=== PATIENT | female | born 1980 | race American Indian/Alaskan Native ===

== ENCOUNTER 2016-08-17 13:15 | Observation (INO) | payer MEDICAID ==
[2016-08-17 13:15] VITALS: BMI 29.2
--- NOTE | 2016-08-17 13:39 | ED PDOC ---
Arrival/HPI - General Historian: Patient - History of Present Illness Time/Duration: < week Symptom Onset: Gradual Symptom Course: Unchanged <Guilherme Quintero - Last Filed: 08/17/16 22:29> <Orlin Hanson - Last Filed: 08/18/16 06:23> <Tom Moses - Last Filed: 08/19/16 17:56> - General Chief Complaint: Substance Abuse Time Seen by Provider: 08/17/16 13:26 - History of Present Illness Narrative History of Present Illness (Text): 08/17/16 13:36 35 year old female brought in by EMS after friend called from "intoxication". Patient states she was "partying for the last 2 days". Last etoh last night. Denies any new trauma. pt states "unsure if she had any drugs" 08/17/16 22:29 (Guilherme Quintero) Modifying Factors (Text): None (Guilherme Quintero) Associated Symptoms (Text): None (Guilherme Quintero) Past Medical History - Provider Review Nursing Documentation Reviewed: Yes - Infectious Disease Hx of Infectious Diseases: None - Pulmonary Hx Asthma: Yes - Psychiatric Hx Anxiety: Yes Hx Substance Use: Yes - Surgical History Hx Tubal Ligation: Yes Other/Comment: right ankle, left ankle. - Anesthesia Hx Anesthesia: Yes Hx Anesthesia Reactions: No <Guilherme Quintero - Last Filed: 08/17/16 22:29> Family/Social History - Physician Review Nursing Documentation Reviewed: Yes Family/Social History: Unknown Family HX Smoking Status: Heavy Smoker > 10 Cigarettes Daily Hx Alcohol Use: Yes Hx Substance Use: Yes Substance used: PCP, marijuana <Guilherme Quintero - Last Filed: 08/17/16 22:29> Allergies/Home Meds <Guilherme Quintero - Last Filed: 08/17/16 22:29> <Orlin Hanson - Last Filed: 08/18/16 06:23> <Tom Moses - Last Filed: 08/19/16 17:56> Allergies/Adverse Reactions: Allergies No Known Allergies Allergy (Verified 09/23/15 23:27) Home Medications: Home Meds Medication Instructions Recorded Confirmed ALPRAZolam [Xanax] 1 mg PO BID 09/23/15 09/23/15 Albuterol HFA 2 puff IH TID PRN 09/23/15 09/23/15 Review of Systems - Review of Systems Systems not reviewed;Unavailable: Intoxicated Respiratory: absent: SOB Cardiovascular: absent: Chest Pain <Guilherme Quintero - Last Filed: 08/17/16 22:29> Physical Exam Vital Signs Reviewed: Yes Temperature: Afebrile Blood Pressure: Normal Pulse: Regular Respiratory Rate: Normal Appearance: Positive for: Well-Appearing, Non-Toxic, Comfortable Pain Distress: None Mental Status: Positive for: other (Alert, answering questions) - Systems Exam Head: Present: Atraumatic, Normocephalic Pupils: Present: Other (Pupils 2 mm bilaterally) Extroacular Muscles: Present: EOMI Conjunctiva: Present: Injected (Mild injection left eye) Mouth: Present: Moist Mucous Membranes Neck: Present: Normal Range of Motion Respiratory/Chest: Present: Clear to Auscultation, Good Air Exchange. No: Respiratory Distress, Accessory Muscle Use Cardiovascular: Present: Regular Rate and Rhythm, Normal S1, S2. No: Murmurs Abdomen: Present: Normal Bowel Sounds. No: Tenderness, Distention, Peritoneal Signs Back: Present: Normal Inspection Upper Extremity: Present: Normal Inspection. No: Cyanosis, Edema Lower Extremity: Present: Normal Inspection. No: Edema Neurological: Present: GCS=15, CN II-XII Intact, Speech Normal Skin: Present: Warm, Dry, Normal Color. No: Rashes Psychiatric: Present: Alert, Normal Concentration <Guilherme Quintero - Last Filed: 08/17/16 22:29> Medical Decision Making - EKG Interpretation Interpreted by ED Physician: Yes Type: 12 lead EKG <Guilherme Quintero - Last Filed: 08/17/16 22:29> <Orlin Hanson - Last Filed: 08/18/16 06:23> <Tom Moses - Last Filed: 08/19/16 17:56> ED Course and Treatment: Impression: 35 year old female brought in by EMS after friend called. Last etoh last night. Differential Diagnosis included but are not limited to: Alcohol intoxication vs substance abuse Plan: -- Labs -- Reassess and disposition Progress Notes: 08/17/16 22:29 in emergency room, pt being agited, running around emergency room. admits to pcp use. pt sedated for her safety and safety of staff and patients. (Guilherme Quintero) - Lab Interpretations Lab Results: 08/17/16 14:00 08/17/16 14:00 Lab Results 08/17/16 14:00: Alcohol, Quantitative < 10 08/17/16 14:00: Salicylates < 1 L, Acetaminophen < 10.0 L 08/17/16 14:00: Sodium 145, Potassium 3.6, Chloride 107, Carbon Dioxide 30, Anion Gap 12, BUN 18, Creatinine 0.8, Est GFR ( Amer) > 60, Est GFR (Non- Af Amer) > 60, Random Glucose 83, Calcium 9.5, Total Bilirubin 0.4, AST 26, ALT 37, Alkaline Phosphatase 86, Total Protein 7.2, Albumin 4.1, Globulin 3.1, Albumin/Globulin Ratio 1.3 08/17/16 14:00: Urine Color Yellow, Urine Appearance Turbid, Urine pH 5.5, Ur Specific [place] >= 1.030, Urine Protein 100 H, Urine Glucose (UA) Negative, Urine Ketones Negative, Urine Blood Small H, Urine Nitrate Negative, Urine Bilirubin Negative, Urine Urobilinogen 1.0 H, Ur Leukocyte Esterase Negative, Urine RBC 0 - 2, Urine WBC 0 - 2, Ur Epithelial Cells 6 - 8, Urine Bacteria Many , Urine HCG, Qual Negative 08/17/16 14:00: WBC 8.6, RBC 4.64, Hgb 12.3, Hct 38.5, MCV 83.0, MCH 26.5, MCHC 31.9, RDW 16.6 H, Plt Count 439, MPV 9.2, Gran % 60.2, Lymph % (Auto) 28.6, [place] % (Auto) 8.0 H, Eos % (Auto) 2.6, Baso % (Auto) 0.6, Gran # 5.18, Lymph # 2.5, [place] # 0.7 H, Eos # 0.2, Baso # 0.05 - EKG Interpretation EKG Interpretation (Text): EKG shows NSR at 89 BPM, otherwise normal. Interpreted by me. (Guilherme Quintero) - Medication Orders Current Medication Orders: Discontinued Medications Diphenhydramine HCl (Benadryl) 50 mg PO BID PRN PRN Reason: agitation/give with haldol Haloperidol (Haldol) 5 mg PO BID PRN; Protocol PRN Reason: Agitation Haloperidol Lactate (Haldol) 5 mg IM STAT STA PRN Reason: Protocol Stop: 08/17/16 16:12 Last Admin: 08/17/16 16:21 Dose: 5 mg Lorazepam (Ativan) 2 mg IM STAT STA PRN Reason: Protocol Stop: 08/17/16 16:11 Last Admin: 08/17/16 16:21 Dose: 2 mg ED OBSERVATION Date of observation admission: 08/17/16 Time of observation admission: 16:03 <Guilherme Quintero - Last Filed: 08/17/16 22:29> <Orlin Hanson - Last Filed: 08/18/16 06:23> <Tom Moses - Last Filed: 08/19/16 17:56> - Observation admission statement Patient is being placed in observation because:: substance abuse (Guilherme Quintero) - Goals of Observation Goals of observation are:: monitor patient, observation (Guilherme Quintero) - Progress Note Progress Note: 08/17/16 16:03 Patient awake, yelling, running around ER. Patient reports using PCP. Patient was sedated for her own safety and safety of ER staff. 08/17/16 18:03 Patient resting comfortably 08/17/16 20:19 Patient resting comfortably with no new complaints 08/17/16 21:19 Patient sleeping comfortably in no acute distress (Guilherme Quintero) 08/17/16 22:42 Case endorsed to me by . Patient is sedated. Pending PES evaluation after patient wakes up. Medically cleared for PES eval. by . 08/18/16 02:36 Patient was being evaluated by PES worker around 02:00. Patient was in a conversation with PES worker when she eloped the emergency department. Hospital security and [place] [employer] notified. 08/18/16 02:40 Patient was immediately found by [place] [employer] and was brought back to the emergency department.Pt. will be kept under close surveillance until reevaluation in AM as per PES worker Violet. 08/18/16 05:45 Patient resting comfortably with no new complaints. 08/18/16 07:00 Pt. awaiting reevaluation by PES.Case endorsed to .Final disposition to follow (Orlin Hanson) pt was seen by screener and dc'd home on dc, pt denies SI/HI was clinically sober with good insight and judgment no signs or symptoms of alcohol or drug withdrawal states she feels comfortable being dc'd home (Tom Moses) - Scribe Statement The provider has reviewed the documentation as recorded by the Scribe <Guilherme Quintero - Last Filed: 08/17/16 22:29> <Orlin Hanson - Last Filed: 08/18/16 06:23> <Tom Moses - Last Filed: 08/19/16 17:56> - Scribe Statement Anurag Vazquez Provider Scribe Attestation: All medical record entries made by the Scribe were at my direction and personally dictated by me. I have reviewed the chart and agree that the record accurately reflects my personal performance of the history, physical exam, medical decision making, and the department course for this patient. I have also personally directed, reviewed, and agree with the discharge instructions and disposition. (Guilherme Quintero) Disposition/Present on Arrival - Present on Arrival History of DVT/PE: No History of Uncontrolled Diabetes: No Urinary Catheter: No History of Decub. Ulcer: No History Surgical Site Infection Following: None <Guilherme Quintero - Last Filed: 08/17/16 22:29> <Orlin Hanson - Last Filed: 08/18/16 06:23> - Present on Arrival Any Indicators Present on Arrival: No - Disposition Have Diagnosis and Disposition been Completed?: Yes Disposition Time: 16:03 Patient Plan: Discharge <Tom Moses - Last Filed: 08/19/16 17:56> - Disposition Diagnosis: Psychiatric diagnosis Disposition: HOME/ ROUTINE Condition: GOOD
[2016-08-17 14:27] LABS: ADD MANUAL DIFF? NO
[2016-08-17 14:30] LABS: BASO # 0.05 K/mm3 (0.0-2.0); BASO % 0.6 % (0.0-3.0); EOS # 0.2 (0.0-0.7); EOS % 2.6 % (1.5-5.0); GRAN # 5.18 (1.4-6.5); GRAN % 60.2 % (50.0-68.0); HEMATOCRIT 38.5 % (36.0-48.0); LYMPH # 2.5 (1.2-3.4); LYMPH % 28.6 % (22.0-35.0); MEAN CORPUSCULAR HEMOGLOBIN 26.5 pg (25.0-35.0); MEAN CORPUSCULAR HGB CONC 31.9 g/dl (31.0-37.0); MEAN PLATELET VOLUME 9.2 fl (7.0-11.0); MONO # 0.7 (0.1-0.6); PLATELET COUNT 439 10^3/uL (120.0-450.0); RED CELL DISTRIBUTION WIDTH 16.6 % (11.5-14.5); WHITE BLOOD COUNT 8.6 10^3/ul (4.5-11.0)
[2016-08-17 14:32] LABS: PH,URINE 5.5 (4.7-8.0); URINE BILIRUBIN NEGATIVE (NEGATIVE); URINE BLOOD SMALL (NEGATIVE); URINE GLUCOSE (UA) NEGATIVE (NEGATIVE); URINE KETONE NEGATIVE (NEGATIVE); URINE LEUKOCYTE ESTERASE NEGATIVE Leu/uL (NEGATIVE); URINE PROTEIN 100 mg/dL (<30 mg/dL)
[2016-08-17 14:34] LABS: URINE APPEARANCE TURBID (CLEAR); URINE COLOR YELLOW (YELLOW)
[2016-08-17 14:39] LABS: URINE RBC 0 - 2 /hpf (0-2); URINE WBC 0 - 2 /hpf (0-6)
[2016-08-17 14:40] LABS: URINE BACTERIA MANY (NEG)
[2016-08-17 14:41] LABS: ALB/GLOB RATIO 1.3 (1.1-1.8); ALKALINE PHOSPHATASE 86 U/L (38-133); ALT/SGPT 37 U/L (7-56); AST/SGOT 26 U/L (15-39); BILIRUBIN,TOTAL 0.4 mg/dL (0.2-1.3); BLOOD UREA NITROGEN 18 mg/dL (7-21); CALCIUM 9.5 mg/dL (8.4-10.5); CARBON DIOXIDE 30 mmol/L (21-33); CHLORIDE 107 mmol/L (98-107); GFR AFRICAN-AMERICAN > 60; GLUCOSE,RANDOM 83 mg/dL (70-110); POTASSIUM 3.6 mmol/L (3.6-5.0); SODIUM 145 mmol/L (132-148); TOTAL PROTEIN 7.2 g/dL (5.8-8.3)
--- NOTE | 2016-08-17 15:21 | CARD ---
APPROVED REPORT EKG Measurement Heart [id number] [id number] <Conclusion> Normal sinus rhythm Minimal voltage criteria for LVH, may be normal variant
--- NOTE | 2016-08-18 07:26 | ED PDOC ---
Physical Exam - Physical Exam Narrative Physical Exam (Text): Physical exam Patient appears age appropriate in no distress, speaking full sentences without difficulty - Systems Exam Head: Present: Atraumatic, Normocephalic Pupils: Present: PERRL Extroacular Muscles: Present: EOMI Conjunctiva: Present: Normal Mouth: Present: Moist Mucous Membranes Neck: Present: Normal Range of Motion. No: MIDLINE TENDERNESS, Paraspinal Tenderness Respiratory/Chest: Present: Clear to Auscultation, Good Air Exchange. No: Respiratory Distress, Accessory Muscle Use, Tachypneic Cardiovascular: Present: Regular Rate and Rhythm, Normal S1, S2, Peripheal Pulses Present. No: Murmurs Abdomen: Present: Normal Bowel Sounds. No: Tenderness, Distention, Peritoneal Signs, Rebound, Guarding Back: Present: Normal Inspection. No: Midline Tenderness, Paraspinal Tenderness Upper Extremity: Present: Normal Inspection. No: Cyanosis, Edema Lower Extremity: Present: Normal Inspection. No: Edema Neurological: Present: GCS=15, Speech Normal, cranial nerves II through XII fully intact with no cerebellar abnormality, neurosensory fully intact. No focal neurological deficits. Skin: Present: Warm, Dry, Normal Color. No: Rashes Lymphatic: Present: OX3, NI, NC Psychiatric: Present: Alert, Oriented x 3, Normal Insight, Normal Concentration Vital Signs Reviewed: Yes Vital Signs Temp Pulse Resp BP Pulse Ox 08/18/16 16:18 98 F 89 18 135/76 97 08/18/16 12:03 88 18 142/87 97 08/18/16 10:00 98 F 95 H 18 136/94 H 96 08/18/16 06:58 97.6 F 102 H 16 127/97 H 100 08/18/16 01:23 98.1 F 82 18 123/75 100 08/17/16 21:43 67 18 108/72 100 08/17/16 18:26 80 20 126/84 99 08/17/16 16:25 98.0 F 95 H 18 138/86 100 08/17/16 13:16 97.6 F 95 H 19 131/89 100 Temperature: Afebrile Blood Pressure: Normal Pulse: Regular Respiratory Rate: Normal Appearance: Positive for: Well-Appearing, Non-Toxic, Comfortable Pain Distress: None Mental Status: Positive for: Alert and Oriented X 3 Medical Decision Making ED Course and Treatment: 08/18/16 07:26 Pending patient PES evaluation. 08/18/16 16:40 Patient seen by Mundo from [place]. Cleared for discharge. Patient ambulating with steady gait without difficulty Patient denies any suicidal or homicidal ideations She states that she feels comfortable being discharged home with outpatient follow-up. Patient is clinically sober with no signs or symptoms of alcohol or drug withdrawal. - Lab Interpretations Lab Results: 08/17/16 14:00 08/17/16 14:00 Lab Results 08/17/16 14:00: Alcohol, Quantitative < 10 08/17/16 14:00: Salicylates < 1 L, Acetaminophen < 10.0 L 08/17/16 14:00: Sodium 145, Potassium 3.6, Chloride 107, Carbon Dioxide 30, Anion Gap 12, BUN 18, Creatinine 0.8, Est GFR ( Amer) > 60, Est GFR (Non- Af Amer) > 60, Random Glucose 83, Calcium 9.5, Total Bilirubin 0.4, AST 26, ALT 37, Alkaline Phosphatase 86, Total Protein 7.2, Albumin 4.1, Globulin 3.1, Albumin/Globulin Ratio 1.3 08/17/16 14:00: Urine Color Yellow, Urine Appearance Turbid, Urine pH 5.5, Ur Specific [place] >= 1.030, Urine Protein 100 H, Urine Glucose (UA) Negative, Urine Ketones Negative, Urine Blood Small H, Urine Nitrate Negative, Urine Bilirubin Negative, Urine Urobilinogen 1.0 H, Ur Leukocyte Esterase Negative, Urine RBC 0 - 2, Urine WBC 0 - 2, Ur Epithelial Cells 6 - 8, Urine Bacteria Many , Urine HCG, Qual Negative 08/17/16 14:00: WBC 8.6, RBC 4.64, Hgb 12.3, Hct 38.5, MCV 83.0, MCH 26.5, MCHC 31.9, RDW 16.6 H, Plt Count 439, MPV 9.2, Gran % 60.2, Lymph % (Auto) 28.6, [place] % (Auto) 8.0 H, Eos % (Auto) 2.6, Baso % (Auto) 0.6, Gran # 5.18, Lymph # 2.5, [place] # 0.7 H, Eos # 0.2, Baso # 0.05 I have reviewed the lab results: Yes - Medication Orders Current Medication Orders: Diphenhydramine HCl (Benadryl) 50 mg PO BID PRN PRN Reason: agitation/give with haldol Haloperidol (Haldol) 5 mg PO BID PRN; Protocol PRN Reason: Agitation Discontinued Medications Haloperidol Lactate (Haldol) 5 mg IM STAT STA PRN Reason: Protocol Stop: 08/17/16 16:12 Last Admin: 08/17/16 16:21 Dose: 5 mg Lorazepam (Ativan) 2 mg IM STAT STA PRN Reason: Protocol Stop: 08/17/16 16:11 Last Admin: 08/17/16 16:21 Dose: 2 mg - Scribe Statement The provider has reviewed the documentation as recorded by the Susan Harding Provider Scribe Attestation: All medical record entries made by the Telloibtere were at my direction and personally dictated by me. I have reviewed the chart and agree that the record accurately reflects my personal performance of the history, physical exam, medical decision making, and the department course for this patient. I have also personally directed, reviewed, and agree with the discharge instructions and disposition. Disposition/Present on Arrival - Present on Arrival Any Indicators Present on Arrival: No History of DVT/PE: No History of Uncontrolled Diabetes: No Urinary Catheter: No History of Decub. Ulcer: No History Surgical Site Infection Following: None - Disposition Have Diagnosis and Disposition been Completed?: Yes Diagnosis: Psychiatric diagnosis Disposition: HOME/ ROUTINE Disposition Time: 16:41 Patient Plan: Discharge Condition: GOOD
[2016-08-18 12:03] VITALS: RESP 18; TEMP 98; O2SAT 97
--- NOTE | 2016-08-18 15:07 | CON ---
DATE: 08/18/2016 HISTORY OF PRESENT ILLNESS: Shortly, the patient is a 35-year-old -[place] female. Initiall y, she was brought in after her friend called EMS because the patient was partying for the past 2 day s. In the Emergency Room, patient was agitated, needed to be in restraints. Before the PS worker yung jay present the case to the psychiatrist, the patient eloped. The patient was brought back in by afshin ice. The patient was disruptive, agitated, needed to be medicated on Haldol and Ativan. The patient was seen and examined. The patient presented to be confused. The patient does not know where she i s. The patient said that she needs to be on haloperidol and she has an outpatient psychiatrist, Dr. Paz, at [facility]. The patient does not have any reasonable explanation why edgar carranza was agitated last night. Besides that, the patient is a poor and unreliable historian. This financial writer reviewed vital signs. Vital signs seem to be stable. Temperature 98, pulse is 88, blood pressure 142/87, respirations 18, oxygen saturation is 97. MEDICATIONS: Reviewed. The patient medicated with haloperidol and Ativan IM yesterday at 4:11. LABORATORY DATA: Reviewed. Toxicology positive for PCP and cannabis. The PS worker spoke to edison shelton's family. The patient was not functioning well. The patient's family expressed highest concern ab out the patient's safety and they do not feel that the patient will be safe in the community. MENTAL STATUS EXAMINATION: The patient presented to be sleepy and at the same time very confused. I ntermittent eye contact, poor personal hygiene, fair ADLs, speech was underproductive and disorganize d. Mood described as, "I am fine. I want to go home." Affect was constricted, at times inappropria te. Thought process is disorganized. Thought content: The patient denied visual, auditory, or tact ile hallucinations. Denied paranoid ideation. Denied thoughts of harming herself or others, denied intent or plan. Insight and judgment are very limited. Impulses are unpredictable. IMPRESSION: The patient needs to be on haloperidol. The patient needs to be followed up with outpat ient psychiatrist. Most likely, the patient has schizophrenia spectrum disorder. The patient also h as polysubstance abuse and dependence; most likely was off her medications. The patient came in the manic stage. The patient was partying for the past 2 days. This financial writer cannot exclude substance ind uced mood disorder, substance-induced psychosis. PCP was positive as well as cannabis. PLAN: This financial writer does not feel that the patient will be safe in the community. The patient's famil y expressed highest concern about the patient's safety. The patient does not want to stay in the [facility] inpatient unit. At the present moment, the patient is awaiting for [facility] er evaluation. Meanwhile, this financial writer implemented p.r.n. medications haloperidol as needed with Ativ an as needed IM. This case was discussed with the Emergency Room physicians and nursing staff. Thank you very much for letting me participate in the care of your patient. Negar Naylor MD cc: [id number] TT: 08/18/2016 15:06:50 Confirmation # [id number] Dictation # [id number] shaina
[2016-08-18 16:19] VITALS: BP 135/76; PULSE 89
== END 2016-08-18 16:25 | disposition home or self-care (01) ==
LOC: ED 13:15 → EROBSV 16:03
PROVIDERS: ADMIT Student in an Organized Health Care Education/Training Program; ATTEND Student in an Organized Health Care Education/Training Program
DX: F99 Mental disorder, not otherwise specified (principal); F41.9 Anxiety disorder, unspecified
CPT/HCPCS: 80053; 80320; 80324; 80329; 80345; 80346; 80349; 80353; 80358; 80361; 81001; 83992; 84703; 85025; 93005; 96372; 99285; G0378; J1630; J2060

== ENCOUNTER 2018-04-14 06:05 | Emergency (ER) | payer MEDICAID ==
[2018-04-14 06:05] VITALS: BMI 29.2
[2018-04-14 06:50] VITALS: RESP 18; TEMP 97.5
[2018-04-14 07:31] LABS: BASO # 0.02 K/mm3 (0.0-2.0); BASO % 0.2 % (0.0-3.0); EOS # 0.2 (0.0-0.7); EOS % 2.7 % (1.5-5.0); HEMOGLOBIN 10.9 g/dL (12.0-16.0); LYMPH # 2.1 (1.2-3.4); LYMPH % 26.1 % (22.0-35.0); MEAN CELL VOLUME 82.2 fl (80.0-105.0); MEAN CORPUSCULAR HEMOGLOBIN 25.5 pg (25.0-35.0); MEAN PLATELET VOLUME 9.2 fl (7.0-11.0); MONO # 0.5 (0.1-0.6); MONO % 6.4 % (1.0-6.0); RBC 4.28 10^6/uL (3.5-6.1); RED CELL DISTRIBUTION WIDTH 16.7 % (11.5-14.5); WHITE BLOOD COUNT 8.1 10^3/uL (4.5-11.0)
[2018-04-14 07:32] LABS: URINE BILIRUBIN NEGATIVE (NEGATIVE); URINE BLOOD NEGATIVE (NEGATIVE); URINE GLUCOSE (UA) NEGATIVE (NEGATIVE); URINE LEUKOCYTE ESTERASE NEGATIVE Leu/uL (NEGATIVE); URINE PROTEIN NEGATIVE mg/dL (<30 mg/dL); URINE UROBILINOGEN 0.2 E.U./dL (<1 E.U./dL)
[2018-04-14 07:38] LABS: URINE APPEARANCE CLEAR (CLEAR); URINE COLOR YELLOW (YELLOW)
[2018-04-14 07:44] LABS: ALB/GLOB RATIO 1.3 (1.1-1.8); ALBUMIN 4.2 g/dL (3.0-4.8); ALT/SGPT 42 U/L (7-56); AST/SGOT 49 U/L (14-36); BLOOD UREA NITROGEN 15 mg/dL (7-21); CALCIUM 9.3 mg/dL (8.4-10.5); GFR NON-AFRICAN AMERICAN > 60
[2018-04-14 07:45] LABS: ACETAMINOPHEN < 10.0 ug/ml (10.0-20.0); SALICYLATE < 1 mg/dL (2.0-20.0)
[2018-04-14 07:53] LABS: OPIATES, UR NEGATIVE (NEGATIVE)
--- NOTE | 2018-04-14 07:56 | RAD ---
Date of service: 04/14/2018 HISTORY: psych screen COMPARISON: No prior. FINDINGS: LUNGS: No active pulmonary disease. PLEURA: No significant pleural effusion identified, no pneumothorax apparent. CARDIOVASCULAR: No aortic atherosclerotic calcification present. Normal cardiac size. No pulmonary vascular congestion. OSSEOUS STRUCTURES: No significant abnormalities. VISUALIZED UPPER ABDOMEN: Normal. OTHER FINDINGS: None. IMPRESSION: No acute cardiopulmonary disease appreciated.
--- NOTE | 2018-04-14 07:59 | ED PDOC ---
Arrival/HPI - General Chief Complaint: Psychiatric Evaluation Time Seen by Provider: 04/14/18 07:00 Historian: Patient EM Caveat: Uncooperative, Psychotic - History of Present Illness Narrative History of Present Illness (Text): 04/14/18 08:00 37 year old female, whose past medical history includes anxiety, substance abuse, and asthma, who presents to the emergency department brought in for apparent medication refill. Patient is belligerent towards staff and is uncooperative unwilling to give information related to the visit. She denies any somatic complaints at this time. HPI and ROS are limited due to patients psychiatric condition. Time/Duration: Prior to Arrival Symptom Onset: Sudden Symptom Course: Unchanged Activities at Onset: Emotional Upset Context: Street Past Medical History - Provider Review Nursing Documentation Reviewed: Yes - Travel History Have you recently traveled outside [place] w/in the past 3 mons?: No - Infectious Disease Hx of Infectious Diseases: None - Reproductive Currently : No - Cardiac Hx Hypertension: No - Pulmonary Hx Asthma: Yes - Neurological Hx Seizures: No - Hematological/Oncological Hx Cancer: No - Genitourinary/Gynecological Hx Sexually Transmitted Diseases: No - Psychiatric Hx Psychophysiologic Disorder: Yes Hx Anxiety: Yes Hx Substance Use: Yes - Surgical History Hx Tubal Ligation: Yes Other/Comment: right ankle, left ankle. - Anesthesia Hx Anesthesia: Yes Hx Anesthesia Reactions: No Family/Social History - Physician Review Nursing Documentation Reviewed: Yes Family/Social History: No Known Family HX Smoking Status: Former Smoker Hx Alcohol Use: Yes Hx Substance Use: Yes Substance used: PCP, marijuana Allergies/Home Meds Allergies/Adverse Reactions: Allergies latex Allergy (Verified 04/14/18 06:13) ANAPHYLAXIS Home Medications: Home Meds Medication Instructions Recorded Confirmed Esomeprazole Magnesium [Nexium] 40 mg PO DAILY 04/14/18 04/14/18 Review of Systems - Review of Systems Systems not reviewed;Unavailable: Psychotic Physical Exam - Physical Exam Physical Exam Limitations: Psychotic, Uncooperative Vital Signs Reviewed: Yes Vital Signs Temp Pulse Resp BP Pulse Ox 04/14/18 06:49 97.5 F L 89 18 140/88 97 Temperature: Afebrile Blood Pressure: Normal Pulse: Regular Respiratory Rate: Normal Appearance: Positive for: Well-Appearing, Non-Toxic, Comfortable Pain Distress: None Mental Status: Positive for: Alert and Oriented X 3 - Systems Exam Head: Present: Atraumatic, Normocephalic Pupils: Present: PERRL Neck: Present: Normal Range of Motion Respiratory/Chest: Present: Clear to Auscultation, Good Air Exchange. No: Respiratory Distress, Accessory Muscle Use Cardiovascular: Present: Regular Rate and Rhythm, Normal S1, S2. No: Murmurs Neurological: Present: GCS=15, Speech Normal Skin: Present: Warm, Dry, Normal Color, Other (no obvious track wounds on the arms). No: Rashes Psychiatric: Present: Alert, Oriented x 3, Other (belligerent). No: Suicidal Ideation, Homicidal Ideation Medical Decision Making ED Course and Treatment: 04/14/18 07:57 Impression: 37 year old female who presents to the emergency department complaining of p sychiatric complaints. Differential Diagnosis included but are not limited to: --Depression --Adjustment disorder --Substance Induced psychosis Plan: -- EKG -- Labs -- Chest X-ray -- Urinalysis -- Ativan -- Haldol -- POC Urine Test -- Urinalysis --UDS -- Reassess and disposition Prior Visits: Notes and results from previous visits were reviewed. Progress Notes: 04/14/18 09:34 Labs reviewed with no abnormalities. Patient is medically cleared. PES adjuster electrical contacts called. 04/14/18 14:37 PES adjuster electrical contacts called and after discussion with Dr. Cotton(psychiatrist) patient will be held for involuntary [facility] screening. - Lab Interpretations Lab Results: Total Bilirubin 0.4 mg/dL (0.2-1.3) 04/14/18 06:56 AST 49 U/L (14-36) H D 04/14/18 06:56 ALT 42 U/L (7-56) 04/14/18 06:56 Alkaline Phosphatase 64 U/L (38-126) 04/14/18 06:56 Total Protein 7.4 g/dL (5.8-8.3) 04/14/18 06:56 Albumin 4.2 g/dL (3.0-4.8) 04/14/18 06:56 Globulin 3.2 gm/dL 04/14/18 06:56 Albumin/Globulin Ratio 1.3 (1.1-1.8) 04/14/18 06:56 Urine Color Yellow (YELLOW) 04/14/18 06:56 Urine Appearance Clear (CLEAR) 04/14/18 06:56 Urine pH 6.0 (4.7-8.0) 04/14/18 06:56 Ur Specific [place] 1.025 (1.005-1.035) 04/14/18 06:56 Urine Protein Negative mg/dL (<30 mg/dL) 04/14/18 06:56 Urine Glucose (UA) Negative mg/dL (NEGATIVE) 04/14/18 06:56 Urine Ketones Trace mg/dL (NEGATIVE) H 04/14/18 06:56 Urine Blood Negative (NEGATIVE) 04/14/18 06:56 Urine Nitrate Negative (NEGATIVE) 04/14/18 06:56 Urine Bilirubin Negative (NEGATIVE) 04/14/18 06:56 Urine Urobilinogen 0.2 E.U./dL (<1 E.U./dL) 04/14/18 06:56 Ur Leukocyte Esterase Negative Chel/uL (NEGATIVE) 04/14/18 06:56 04/14/18 06:56 04/14/18 06:56 Lab Results 04/14/18 06:56: Alcohol, Quantitative < 10 04/14/18 06:56: Salicylates < 1 L, Acetaminophen < 10.0 L 04/14/18 06:56: Urine Opiates Screen Negative, Urine Methadone Screen Negative, Ur Barbiturates Screen Negative, Ur Phencyclidine Scrn Positive H, Ur Amphetamines Screen Negative, U Benzodiazepines Scrn Negative, U Oth Cocaine Metabols Negative, U Cannabinoids Screen Negative 04/14/18 06:56: Sodium 142, Potassium 3.8, Chloride 108 H, Carbon Dioxide 28, Anion Gap 10, BUN 15, Creatinine 0.6 L, Est GFR ( Amer) > 60, Est GFR (Non-Af Amer) > 60, Random Glucose 113 H, Calcium 9.3, Magnesium 1.9, Total Bilirubin 0.4, AST 49 H D, ALT 42, Alkaline Phosphatase 64, Total Protein 7.4, Albumin 4.2, Globulin 3.2, Albumin/Globulin Ratio 1.3 04/14/18 06:56: Urine Color Yellow, Urine Appearance Clear, Urine pH 6.0, Ur Specific [place] 1.025, Urine Protein Negative, Urine Glucose (UA) Negative, Urine Ketones Trace H, Urine Blood Negative, Urine Nitrate Negative, Urine Bilirubin Negative, Urine Urobilinogen 0.2, Ur Leukocyte Esterase Negative 04/14/18 06:56: WBC 8.1, RBC 4.28, Hgb 10.9 L, Hct 35.2 L, MCV 82.2, MCH 25.5, MCHC 31.0, RDW 16.7 H, Plt Count 559 H, MPV 9.2, Neut % (Auto) 64.6, Lymph % (Auto) 26.1, [place] % (Auto) 6.4 H, Eos % (Auto) 2.7, Baso % (Auto) 0.2, Lymph # (Auto) 2.1, [place] # (Auto) 0.5, Eos # (Auto) 0.2, Baso # (Auto) 0.02, Absolute Neuts (auto) 5.25 I have reviewed the lab results: Yes - RAD Interpretation Narrative RAD Interpretations (Text): 04/14/18 08:10 Chest X-ray reviewed by radiologist, shows: IMPRESSION: No acute cardiopulmonary disease appreciated. Radiology Orders: 04/14/18 07:18 CHEST PORTABLE [RAD] Stat Store Mgr: Radiologist - EKG Interpretation EKG Interpretation (Text): 04/14/18 09:18 EKG reviewed by me at 7:05, shows: NSR at [address] elevations and no Twave inversions. Interpreted by ED Physician: Yes Type: 12 lead EKG - Medication Orders Current Medication Orders: Discontinued Medications Haloperidol Lactate (Haldol) 5 mg IM STAT STA; Protocol Stop: 04/14/18 07:19 Last Admin: 04/14/18 07:27 Dose: 5 mg IM Administration Charges Document 04/14/18 07:27 BB (Rec: 04/14/18 07:28 BB [facility] [id number] Injection Site MAR Injection Site Left Deltoid Charges for Administration # of IM Administrations 1 Lorazepam (Ativan) 2 mg IM ONCE ONE; Protocol Stop: 04/14/18 07:19 Last Admin: 04/14/18 07:28 Dose: 2 mg IM Administration Charges Document 04/14/18 07:28 BB (Rec: 04/14/18 07:28 BB [facility] [id number] Injection Site MAR Injection Site Left Deltoid Charges for Administration # of IM Administrations 1 - Scribe Statement The provider has reviewed the documentation as recorded by the Susan Batres Provider Scribe Attestation: All medical record entries made by the Scribe were at my direction and personally dictated by me. I have reviewed the chart and agree that the record accurately reflects my personal performance of the history, physical exam, medical decision making, and the department course for this patient. I have also personally directed, reviewed, and agree with the discharge instructions and disposition. Disposition/Present on Arrival - Present on Arrival Any Indicators Present on Arrival: No History of DVT/PE: No History of Uncontrolled Diabetes: No Urinary Catheter: No History of Decub. Ulcer: No History Surgical Site Infection Following: None - Disposition Have Diagnosis and Disposition been Completed?: Yes Diagnosis: Substance induced mood disorder Disposition: HOME/ ROUTINE Disposition Time: 19:00 Patient Plan: Transfer To Condition: GOOD Discharge Instructions (ExitCare): Drug Abuse and Drug Addiction (DC) Additional Instructions: Follow up outpatient [facility] as per instructions/directions by psychiatric adjuster electrical contacts Forms: [employer] (Jordanian)
[2018-04-14 08:00] LABS: BARBITURATES, UR NEGATIVE (NEGATIVE); BENZODIAZEPINES, UR NEGATIVE (NEGATIVE); PHENCYCLIDINE, UR POSITIVE (NEGATIVE)
--- NOTE | 2018-04-14 09:50 | CARD ---
APPROVED REPORT Date of service: 04/14/2018 EKG Measurement Heart [id number] <Conclusion> Normal sinus rhythm Normal ECG
--- NOTE | 2018-04-14 19:56 | ED PDOC ---
Physical Exam Vital Signs Temp Pulse Resp BP Pulse Ox 04/14/18 17:00 94 H 18 139/74 99 04/14/18 15:00 83 18 136/74 99 04/14/18 13:00 84 18 134/82 97 04/14/18 11:20 91 H 18 136/89 98 04/14/18 08:05 81 18 131/79 98 04/14/18 06:49 97.5 F L 89 18 140/88 97 Medical Decision Making ED Course and Treatment: 04/14/18 19:53 Case endorsed to me from Dr. Ramsey. Patient is awaiting [facility] screening. Patient has a history of auditory hallucinations, possibly induced by substance abuse, and suicidal ideation. Patient was medically cleared and is currently resting comfortably. Patient is in no acute distress and presents no new medical complaints. 04/14/18 23:40 Patient was seen and evaluated by [facility] screener and cleared for discharge and reevaluation by PES here. Patient was reevaluated by [facility] PES worker, who discussed case with psychiatrist. Patient is not a suicidal risk, and condition consistent with substance abuse mood disorder. Patient was given instruction by PES launderer hand to follow up outpatient [facility] in [place]. - Lab Interpretations Lab Results: Total Bilirubin 0.4 mg/dL (0.2-1.3) 04/14/18 06:56 AST 49 U/L (14-36) H D 04/14/18 06:56 ALT 42 U/L (7-56) 04/14/18 06:56 Alkaline Phosphatase 64 U/L (38-126) 04/14/18 06:56 Total Protein 7.4 g/dL (5.8-8.3) 04/14/18 06:56 Albumin 4.2 g/dL (3.0-4.8) 04/14/18 06:56 Globulin 3.2 gm/dL 04/14/18 06:56 Albumin/Globulin Ratio 1.3 (1.1-1.8) 04/14/18 06:56 Urine Color Yellow (YELLOW) 04/14/18 06:56 Urine Appearance Clear (CLEAR) 04/14/18 06:56 Urine pH 6.0 (4.7-8.0) 04/14/18 06:56 Ur Specific [place] 1.025 (1.005-1.035) 04/14/18 06:56 Urine Protein Negative mg/dL (<30 mg/dL) 04/14/18 06:56 Urine Glucose (UA) Negative mg/dL (NEGATIVE) 04/14/18 06:56 Urine Ketones Trace mg/dL (NEGATIVE) H 04/14/18 06:56 Urine Blood Negative (NEGATIVE) 04/14/18 06:56 Urine Nitrate Negative (NEGATIVE) 04/14/18 06:56 Urine Bilirubin Negative (NEGATIVE) 04/14/18 06:56 Urine Urobilinogen 0.2 E.U./dL (<1 E.U./dL) 04/14/18 06:56 Ur Leukocyte Esterase Negative Chel/uL (NEGATIVE) 04/14/18 06:56 - RAD Interpretation Radiology Orders: 04/14/18 07:18 CHEST PORTABLE [RAD] Stat - Medication Orders Current Medication Orders: Discontinued Medications Haloperidol Lactate (Haldol) 5 mg IM STAT STA; Protocol Stop: 04/14/18 07:19 Last Admin: 04/14/18 07:27 Dose: 5 mg IM Administration Charges Document 04/14/18 07:27 BB (Rec: 04/14/18 07:28 BB [facility] [id number] Injection Site MAR Injection Site Left Deltoid Charges for Administration # of IM Administrations 1 Lorazepam (Ativan) 2 mg IM ONCE ONE; Protocol Stop: 04/14/18 07:19 Last Admin: 04/14/18 07:28 Dose: 2 mg IM Administration Charges Document 04/14/18 07:28 BB (Rec: 04/14/18 07:28 BB [id number]) Injection Site MAR Injection Site Left Deltoid Charges for Administration # of IM Administrations 1 - Scribe Statement The provider has reviewed the documentation as recorded by the [facility] All medical record entries made by the Telloibtere were at my direction and personally dictated by me. I have reviewed the chart and agree that the record accurately reflects my personal performance of the history, physical exam, medical decision making, and the department course for this patient. I have also personally directed, reviewed, and agree with the discharge instructions and disposition. Disposition/Present on Arrival - Present on Arrival Any Indicators Present on Arrival: No History of DVT/PE: No History of Uncontrolled Diabetes: No Urinary Catheter: No History of Decub. Ulcer: No History Surgical Site Infection Following: None - Disposition Have Diagnosis and Disposition been Completed?: Yes Diagnosis: Substance induced mood disorder Disposition: HOME/ ROUTINE Disposition Time: 23:36 Patient Plan: Discharge Patient Problems: Current Active Problems Problem Status Onset Substance induced mood disorder Acute Condition: GOOD Additional Instructions: Follow up outpatient [facility] as per instructions/directions by psychiatric launderer hand Forms: [employer] (Lithuanian)
[2018-04-14 23:53] VITALS: BP 135/70; PULSE 82; O2SAT 98
== END 2018-04-14 23:49 | disposition home or self-care (01) ==
LOC: ED 06:05
DX: F19.94 Other psychoactive substance use, unspecified with psychoactive substance-induced mood disorder (principal); Z87.891 Personal history of nicotine dependence; F41.9 Anxiety disorder, unspecified; J45.909 Unspecified asthma, uncomplicated
CPT/HCPCS: 71045; 80053; 80320; 80324; 80329; 80345; 80346; 80349; 80353; 80358; 80361; 81003; 81025; 83735; 83992; 85025; 90791; 93005; 96372; 99285; J1630; J2060